=== PATIENT | female | born 1995 | race Caucasian/White ===

== ENCOUNTER 2017-10-14 14:20 | Emergency (ER) | payer MEDICAID, OTHER ==
[~2017-10-14] VITALS: Ht 172.7 cm; Wt 71.8 kg
[2017-10-14 14:58] VITALS: BP 107/69
[2017-10-14] MEDS ORDERED: IBUPROFEN 200 MG TABLET PO ONE (16:00)
[2017-10-14] MEDS ORDERED: IBUPROFEN 200 MG TABLET ONE (16:01)
== END 2017-10-14 16:11 | disposition home or self-care (01) ==
LOC: ED 16:00
DX: M54.5 Low back pain (principal); M53.3 Sacrococcygeal disorders, not elsewhere classified; R20.2 Paresthesia of skin; W18.30XA Fall on same level, unspecified, initial encounter; Y93.23 Activity, snow (alpine) (downhill) skiing, snowboarding, sledding, tobogganing and snow tubing; Y99.8 Other external cause status; Y92.89 Other specified places as the place of occurrence of the external cause
CPT/HCPCS: 72110; 72220; 99284

== ENCOUNTER 2018-05-09 14:01 | Emergency (ER) | payer MEDICAID ==
[~2018-05-09] VITALS: Ht 175.3 cm; Wt 73.0 kg
[2018-05-09 14:05] VITALS: BP 98/72
[2018-05-09 14:37] LABS: HCG UR SG 1.024 (1.003-1.030)
[2018-05-09 14:52] LABS: MICROSCOPIC NOT IND
[2018-05-09 14:58] LABS: CULTURE INDICATED? NO
[2018-05-09 15:22] LABS: BASOPHILS # (AUTO) 0.02 x10^3/uL (0-0.1); BASOPHILS % (AUTO) 0 % (0-1); EOSINOPHILS # (AUTO) 0.18 x10^3/uL (0-0.4); EOSINOPHILS % (AUTO) 3 % (1-7); LYMPHOCYTES # (AUTO) 2.07 x10^3/uL (1-3.4); LYMPHOCYTES % (AUTO) 34 % (22-44); MD NO; MEAN CORPUSCULAR HEMOGLOBIN 32.6 pg (27.0-34.8); MEAN CORPUSCULAR HGB CONC 34.4 g/dL (32.4-35.8); MEAN CORPUSCULAR VOLUME 94.7 fL (80-100); MEAN PLATELET VOLUME 8.5 fL (7.4-10.4); MONOCYTES # (AUTO) 0.61 x10^3/uL (0.2-0.8); MONOCYTES % (AUTO) 10 % (2-9); NEUTROPHILS # (AUTO) 3.23 x10^3/uL (1.8-6.8); NEUTROPHILS % (AUTO) 53 % (42-75); PLATELET COUNT 205 x10^3/uL (130-400); RED BLOOD COUNT 4.41 x10^6/uL (3.82-5.3); RED CELL DISTRIBUTION WIDTH 12.9 % (9.6-15.2)
[2018-05-09 15:31] LABS: ALANINE AMINOTRANSFERASE 23 U/L (12-78); ALBUMIN 4.1 g/dL (3.4-5.0); ANION GAP 5 mmol/L (5-15); CALCIUM 8.8 mg/dL (8.5-10.1); CHLORIDE 108 mmol/L (98-107); CREATININE 0.78 mg/dL (0.55-1.02)
[2018-05-09 15:33] LABS: ALKALINE PHOSPHATASE 81 U/L (45-117); BILIRUBIN,TOTAL 0.5 mg/dL (0.2-1.0); TOTAL PROTEIN 7.4 g/dL (6.4-8.2)
== END 2018-05-09 15:49 | disposition home or self-care (01) ==
LOC: ED 15:04
DX: R10.31 Right lower quadrant pain (principal); R30.0 Dysuria
CPT/HCPCS: 36415; 80053; 81003; 81025; 83690; 85025; 99284

== ENCOUNTER 2018-05-13 10:07 | Emergency (ER) | payer MEDICAID ==
[~2018-05-13] VITALS: Ht 175.3 cm; Wt 73.0 kg
[2018-05-13 10:20] VITALS: BP 110/78
[2018-05-13] MEDS ORDERED: LORA10TA75 PO (10:35)
[2018-05-13 10:58] LABS: HCG UR SG 1.031 (1.003-1.030)
[2018-05-13 10:59] LABS: CULTURE INDICATED? YES; MICROSCOPIC INDICATED
[2018-05-13] MEDS ORDERED: KETOROLAC 30 MG/1 ML ONE (11:24)
[2018-05-13] MEDS ORDERED: KETOROLAC 30 MG/1 ML IM ONE (11:30)
== END 2018-05-13 12:42 | disposition home or self-care (01) ==
LOC: ED 12:24
DX: R30.0 Dysuria (principal); R10.9 Unspecified abdominal pain
CPT/HCPCS: 74176; 81001; 81025; 87086; 96372; 99285; J1885

== ENCOUNTER 2019-01-28 07:33 | Emergency (ER) | payer MEDICAID ==
[~2019-01-28] VITALS: Ht 175.3 cm; Wt 71.0 kg
[~2019-01-28 07:33] MED LIST: LORA10TA75 PO
[2019-01-28 07:42] VITALS: BP 104/64
[2019-01-28] MEDS ORDERED: [UNRECOGNIZED DRUG - CODE] PO (08:13)
[2019-01-28] MEDS ORDERED: RIFA300C3 PO (08:13)
[2019-01-28] MEDS ORDERED: FAMOTIDINE 20 MG TABLET ONE (08:20)
[2019-01-28] MEDS ORDERED: FAMOTIDINE 20 MG TABLET PO ONE (08:30)
== END 2019-01-28 09:42 | disposition home or self-care (01) ==
LOC: ED 09:34
DX: L50.9 Urticaria, unspecified (principal)
CPT/HCPCS: 99284; J7512; Q0177

== ENCOUNTER 2019-07-24 21:16 | Emergency (ER) | payer MEDICAID, OTHER ==
[~2019-07-24] VITALS: Ht 177.8 cm; Wt 80.9 kg
[~2019-07-24 21:16] MED LIST changes: +RIFA300C3 PO; +[UNRECOGNIZED DRUG - CODE] PO
[2019-07-24] MEDS ORDERED: MORPHINE SULFATE 4 MG/ML, 1ML ONE (22:03)
[2019-07-24] MEDS ORDERED: ONDANSETRON 2MG/ML, 2ML ONE (22:03)
[2019-07-24 22:22] LABS: BASOPHILS # (AUTO) 0.04 x10^3/uL (0-0.1); BASOPHILS % (AUTO) 0 % (0-1); EOSINOPHILS # (AUTO) 0.14 x10^3/uL (0-0.4); EOSINOPHILS % (AUTO) 1 % (1-7); LYMPHOCYTES # (AUTO) 2.63 x10^3/uL (1-3.4); LYMPHOCYTES % (AUTO) 27 % (22-44); MD NO; MEAN CORPUSCULAR HEMOGLOBIN 32.2 pg (27.0-34.8); MEAN CORPUSCULAR HGB CONC 33.5 g/dL (32.4-35.8); MEAN CORPUSCULAR VOLUME 96.2 fL (80-100); MEAN PLATELET VOLUME 7.9 fL (7.4-10.4); MONOCYTES # (AUTO) 0.69 x10^3/uL (0.2-0.8); MONOCYTES % (AUTO) 7 % (2-9); NEUTROPHILS # (AUTO) 6.34 x10^3/uL (1.8-6.8); NEUTROPHILS % (AUTO) 65 % (42-75); PLATELET COUNT 242 x10^3/uL (130-400); RED BLOOD COUNT 4.31 x10^6/uL (3.82-5.3); RED CELL DISTRIBUTION WIDTH 12.3 % (9.6-15.2)
[2019-07-24] MEDS ORDERED: MORPHINE SULFATE 4 MG/ML, 1ML IVPush ONE (22:30)
[2019-07-24] MEDS ORDERED: ONDANSETRON 2MG/ML, 2ML IVPush ONE (22:30)
[2019-07-24 22:35] LABS: ALANINE AMINOTRANSFERASE 24 U/L (12-78); ALBUMIN 3.9 g/dL (3.4-5.0); ANION GAP 4 mmol/L (5-15); CALCIUM 8.9 mg/dL (8.5-10.1); CHLORIDE 108 mmol/L (98-107); CREATININE 0.85 mg/dL (0.55-1.02)
[2019-07-24 22:37] LABS: ALKALINE PHOSPHATASE 62 U/L (45-117); BILIRUBIN,TOTAL 0.5 mg/dL (0.2-1.0)
--- NOTE | 2019-07-24 22:40 | NUR ---
Patient came to ER with RUQ abd pain. Patient states she has had the pain intermittently for the past 10 days but it became constant over the last two days. Patient went to urgent care prior to coming to the ER. They advised her that her gallbladder might be the problem but they did not have imaging available. Patient is in obvious pain. Patient guarding upon palpation. Patient denies back pain. She has been nauseous but no vomiting. Denies diarrhea.
--- NOTE | 2019-07-24 23:03 | NUR ---
CT PENDING NEG. HCG.
[2019-07-24 23:43] LABS: HCG UR SG 1.017 (1.003-1.030)
[2019-07-24 23:46] LABS: MICROSCOPIC NOT IND
[2019-07-24 23:52] LABS: CULTURE INDICATED? NO
[2019-07-25] MEDS ORDERED: OMNIPAQUE 350 MG/ML, 100ML BOTTLE ONE (00:07)
[2019-07-25 00:58] VITALS: BP 100/58
== END 2019-07-25 01:03 | disposition home or self-care (01) ==
LOC: ED 22:07
DX: K59.00 Constipation, unspecified (principal); R10.11 Right upper quadrant pain; R68.83 Chills (without fever); R11.0 Nausea
CPT/HCPCS: 36415; 74177; 76700; 80053; 81003; 81025; 83690; 85025; 96374; 96375; 99284; J2270; J2405; Q9967